=== PATIENT | male | born 1950 | race Caucasian/White ===

== ENCOUNTER → 2018-05-04 | Outpatient (CLI) | payer MEDICARE ==
[2018-05-04 17:06] LABS: HCT 44.6 % (39.0-53.0); HGB 14.9 gm/dL (13.0-17.5); MCH 33.2 pg (25.0-35.0); MCHC 33.4 g/dL (31.0-37.0); MCV 99.3 fL (80.0-100.0); Mean Platelet Volume 7.3; Platelet Count 175 k/uL (150-450); RBC 4.48 m/uL (4.30-5.90); RDW 12.2 % (11.5-15.5); WBC 5.3 k/uL (3.8-10.6)
[2018-05-04 17:31] LABS: Anion Gap 5 mmol/L; Blood Urea Nitrogen 15 mg/dL (9-20); Carbon Dioxide 30 mmol/L (22-30); Chloride 104 mmol/L (98-107); Potassium 4.6 mmol/L (3.5-5.1); Sodium 139 mmol/L (137-145)
== END | disposition home or self-care (01) ==
LOC: LABPAT 15:45
PROVIDERS: ATTEND Internal Medicine Cardiovascular Disease
DX: Z01.812 Encounter for preprocedural laboratory examination (principal); R07.2 Precordial pain
CPT/HCPCS: 36415; 80051; 82565; 84520; 85027

== ENCOUNTER 2018-05-10 05:44 | Day surgery (SDC) | payer MEDICARE ==
[2018-05-05 12:23] VITALS: BMI 24.0
[2018-05-10] MEDS ORDERED: SODIUM CHLORIDE 0.9% 1,000 ML in EMPTY BAG 1 BAG IV ONE (05:57)
[2018-05-10] MEDS ORDERED: NITROGLYCERIN SL TABS 0.4 MG TAB SUBLINGUAL PRN ×2 (05:57→08:51)
[2018-05-10] MEDS ORDERED: ALPRAZolam 0.5 MG TAB PO PRN (05:57)
[2018-05-10] MEDS ORDERED: ATORVASTATIN 80 MG TAB PO STA (05:57)
[2018-05-10] MEDS ORDERED: ASPIRIN 325 MG TAB PO STA (05:57)
[2018-05-10] MEDS ORDERED: ALPRAZolam 0.25 MG TAB PO PRN (05:57)
[2018-05-10] MEDS ORDERED: SODIUM CHLORIDE 0.9% 1,000 ML IV ONE (06:35)
[2018-05-10] MEDS ORDERED: MIDAZOLAM 2 MG/2 ML VIAL IV ONE (07:37)
[2018-05-10] MEDS ORDERED: LIDOCAINE 1% INJ 10MG/ML (20 ML MDV) SQ ONE (07:39)
[2018-05-10] MEDS ORDERED: BIVALIRUDIN BOLUS 250 MG/50 ML IV ONE (08:04)
[2018-05-10] MEDS ORDERED: BIVALIRUDIN 250 MG in SODIUM CHLORIDE 0.9% 50 ML IV ONE (08:05)
[2018-05-10] MEDS ORDERED: PRASUGREL 10 MG TAB PO ONE (08:05)
[2018-05-10] MEDS: NITROGLYCERIN 1000MCG/10ML SYRINGE INTRACORON ONE ×2 (08:12→08:14)
[2018-05-10] MEDS ORDERED: IOPAMIDOL-370 125ML BTL INJ ONE (08:19)
[2018-05-10] MEDS ORDERED: IOPAMIDOL-370 100ML BTL INJ ONE (08:43)
[2018-05-10] MEDS ORDERED: RX INFO: IV CONTRAST WAS GIVEN 1 EACH MISC MISCELLANE PRN (08:51)
[2018-05-10] MEDS ORDERED: ZOLPIDEM 5 MG TAB PO PRN (08:51)
[2018-05-10] MEDS ORDERED: ATROPINE SULFATE 0.1 MG/ML 10ML SYRINGE IV PRN (08:51)
[2018-05-10] MEDS ORDERED: MAG HYDROX/AL HYDROX/SIMETH 30 ML CUP PO PRN (08:51)
[2018-05-10] MEDS ORDERED: SODIUM CHLORIDE 0.9% 1,000 ML IV SCH (09:00)
--- NOTE | 2018-05-10 09:19 | CC ---
CARDIAC CATHETERIZATION REPORT INDICATION: Unstable angina. This is a 67-year-old gentleman who presented to us with exertional chest pain and had an abnormal stress test due to which I advised him to undergo cardiac catheterization. He had been explained of risks, benefits and alternatives, understood and accepted. PROCEDURE NOTE: After obtaining informed consent, left heart catheterization and coronary angiogram were performed via the right femoral artery using standard Gaye catheters. Patient tolerated the procedure well without any obvious immediate complications. Patient received moderate conscious sedation and total sedation time was 14 minutes. FINDINGS: 1. HEMODYNAMICS: Left ventricular end-diastolic pressure is 12 to 14 mm. There is no significant gradient across the aortic valve. 2. LEFT VENTRICULOGRAM: Left ventriculogram is not performed. 3. ANGIOGRAPHIC DATA: Left Main Coronary Artery: Left main coronary artery is a normal-sized vessel and is free of stenosis, which appears calcified, divides into left anterior descending coronary artery and circumflex coronary artery. Circumflex coronary artery and its branches are free of significant stenosis. Left anterior descending coronary artery shows a 95% stenosis in the proximal part and 60% to 70% stenosis just past the diagonal branch. Right coronary artery is a nondominant vessel and is free of significant disease. CONCLUSIONS: A 95% stenosis involving the proximal left anterior descending artery and a 60% to 70% stenosis involving the distal left anterior descending artery. PLAN: Patient will undergo angioplasty with stent placement of proximal LAD and depending upon how the distal vessel looks optimally angioplasty he may or may not undergo stent of the distal vessel. MMODL / IJN: [id number] /
--- NOTE | 2018-05-10 09:19 | LTR ---
May 10, 2018 Re: Marlon Fayetono Dear Dr. Velazquez: I performed cardiac catheterization on Marlon Mullins. A detailed catheterization note is enclosed for your records. In brief, the cardiac catheterization revealed a focal stenosis involving the proximal LAD, which needs to be stented. Thank you for giving me the privilege to participate in the care of this pleasant gentleman. Sincerely, MD JOSIAH Bettencourt / MING: [id number] /
--- NOTE | 2018-05-10 09:44 | AN ---
ANGIOGRAPHY REPORT CORONARY ANGIOPLASTY PROCEDURE NOTE: Mr. Mullins is a 67-year-old male who has been followed by Dr. Elizondo and presented with symptoms of chest discomfort with an abnormal stress test. In view of that, he underwent cardiac catheterization, was found to have critical stenosis involving the proximal LAD and another lesion in mid calcified LAD. In view of that, recommendation was made regarding angioplasty and stenting. The procedures, risks and complications were discussed with the patient who is in full understanding and agreement. PROCEDURE: A 6-Uzbek FR4 guiding catheter introduced in to the system after cannulating the left main, a 0.014 balanced medium weight J-wire was advanced and positioned in the distal LAD. Following that, a 3.0 x 18 mm Xience Karolyn stent was deployed, postdilated at 14 atmospheres. Following that, the balloon was removed and another 0.014 balanced medium weight J-wire was advanced into the diagonal branch and a 2.75 x 12 mm Trek balloon was advanced into the ostium of the diagonal branch and two inflations at 10 atmosphere. Following that, the balloon was removed and the wire of the diagonal branch was removed and a 3.5 x 15 mm Xience Karolyn stent was advanced to the proximal LAD, deployed and post-dilated at 14 atmospheres. After the last inflation, after appropriate wait, the balloon and the guidewire were withdrawn back in the guiding catheter. Images were obtained and repeated. Those images reveal stable successful stenting. At that point, the guiding catheter, the balloon and the guidewire were removed. The sheath was removed. Hemostasis was obtained with deployment of an Angio-Seal. There was no immediate complication. Patient is returned to his room in stable condition. Of note, patient received Angiomax per protocol as well as oral loading dose of Effient. He had chest discomfort and EKG changes with the inflation that resolved at the end of the procedure. RESULTS: 1. Successful stenting of the mid LAD with reduction of stenosis from 75% to 0% with angioplasty of the first diagonal branch ostium. 2. Successful stenting of the proximal LAD with reduction of stenosis from 90% to 0%. RECOMMENDATION: Patient to be continued on aspirin, Effient, beta luis, and statin. The importance of dual antiplatelet treatment were discussed with the patient and his family who are in full understanding and agreement. Duration of procedure is 31 minutes. MMODL / IJN: [id number] /
[2018-05-10] MEDS: METOPROLOL TARTRATE 25 MG TAB PO SCH (20:32)
[2018-05-10] MEDS ORDERED: ATORVASTATIN 80 MG TAB PO SCH (21:00)
[2018-05-11 07:33] LABS: Sodium 139 mmol/L (137-145)
[2018-05-11 07:35] LABS: Anion Gap 3 mmol/L; Blood Urea Nitrogen 10 mg/dL (9-20); Carbon Dioxide 28 mmol/L (22-30); Chloride 108 mmol/L (98-107); Glucose 89 mg/dL (74-99); Potassium 4.7 mmol/L (3.5-5.1)
[2018-05-11] MEDS: METOPROLOL TARTRATE 25 MG TAB PO SCH (08:31)
[2018-05-11] MEDS ORDERED: ASPIRIN 81 MG PO SCH (09:00)
[2018-05-11] MEDS ORDERED: PRASUGREL 10 MG TAB PO SCH (09:00)
--- NOTE | 2018-05-11 09:00 | PN ---
PROGRESS NOTE Mr. Mullins is a 67-year-old male who presented with symptoms of unstable angina underwent cardiac catheterization by Dr. Elizondo and subsequent stenting of the LAD in the proximal and mid segment. He is doing well this morning. He is denying any chest pain. His breathing has been stable. He has been ambulating without difficulty. He continued be on aspirin once a day, Effient 10 mg daily, metoprolol tartrate 25 mg twice a day, and atorvastatin 80 mg daily. PHYSICAL EXAMINATION: Blood pressure 120/70 with the heart in 50s. LUNGS: Clear. HEART: Regular rate and rhythm. S1, S2. No S3. No rub. ABDOMEN: Soft, nontender. RIGHT GROIN: No hematoma. EKG revealed no acute changes. LAB DATA: BUN and creatinine 10 and 0.88. IMPRESSION: 1. Status post stenting of the LAD. 2. Hyperlipidemia. RECOMMENDATION: Patient will be discharged home today and followed as an outpatient with Dr. Elizondo. MMODL / MILEYN: [id number] /
[2018-05-11 09:04] VITALS: BP 122/71; PULSE 63; RESP 20; TEMP 96.9
== END 2018-05-11 10:51 | disposition home or self-care (01) ==
LOC: CATHCVL 05:44 → 3SCARD 08:39 → CATHCVL 05-11 10:51
PROVIDERS: ATTEND Internal Medicine Cardiovascular Disease
DX: I25.110 Atherosclerotic heart disease of native coronary artery with unstable angina pectoris (principal); R94.39 Abnormal result of other cardiovascular function study; E78.5 Hyperlipidemia, unspecified; Z82.49 Family history of ischemic heart disease and other diseases of the circulatory system; Z79.82 Long term (current) use of aspirin; Z79.899 Other long term (current) drug therapy
CPT/HCPCS: 93458; 80048; C9600; C1769 ×3; C1760; C1887; C1725; C1894; C1874; J2250; J2001; J0583; Q9967 ×2

== ENCOUNTER → 2018-12-15 | Outpatient (CLI) | payer MEDICARE ==
[2018-12-15 23:35] LABS: ALT 28 U/L (10-49); AST 31 U/L (14-35); Chol/HDL Ratio 1.76; Cholesterol 104 mg/dL (0-200); Triglycerides <50.0 mg/dL (0.0-149.0)
== END | disposition home or self-care (01) ==
LOC: LABWHC1 08:18
PROVIDERS: ATTEND Internal Medicine Cardiovascular Disease
DX: E78.2 Mixed hyperlipidemia (principal)
CPT/HCPCS: 36415; 80061; 84450; 84460

== ENCOUNTER → 2019-11-23 | Outpatient (CLI) | payer MEDICARE ==
[2019-11-23 15:38] LABS: ALT 20 U/L (10-49); AST 30 U/L (14-35); Chol/HDL Ratio 1.71; Cholesterol 108 mg/dL (0-200); Triglycerides <50.0 mg/dL (0.0-149.0)
== END | disposition home or self-care (01) ==
LOC: LABWHC1 09:32
PROVIDERS: ATTEND Internal Medicine Cardiovascular Disease
DX: E78.2 Mixed hyperlipidemia (principal)
CPT/HCPCS: 36415; 80061; 84450; 84460

== ENCOUNTER 2020-01-12 07:45 | Day surgery (SDC) | payer MEDICARE ==
[2020-01-08 13:42] VITALS: BMI 21.9
[~2020-01-12 07:45] MED LIST: ACETAMINOPHEN TAB 500 MG TAB PO ONE; DEXAMETHASONE SOD PHOSPHATE 10 MG/ML 1 ML VIAL IV ONE; HEPARIN SODIUM,PORCINE 5,000 UNIT/ML 1 ML VIAL SQ ONE; LACTATED RINGERS 1,000 ML IV SCH; LIDOCAINE 1% (10MG/ML) FOR IV START INTRADERMA PRN; MIDAZOLAM 2 MG/2 ML VIAL IV PRN; ONDANSETRON 4 MG/2 ML VIAL IVP ONE
--- NOTE | 2020-01-12 09:27 | P.GSHP ---
History of Present Illness H&P Date: 01/12/20 Chief Complaint: left inguinal hernia 69-year-old male seen in the office in September. Complaining of a hernia on the left-hand side. First noticed earlier this year. Patient wears a truss and this controls his symptoms well. No symptoms on the right. History of previous umbilical hernia repair with mesh. Past Medical History Past Medical History: Atrial Fibrillation, Coronary Artery Disease (CAD), Chest Pain / Angina, Hyperlipidemia, Osteoarthritis (OA) Additional Past Medical History / Comment(s): "minor A-Fib"- no rx History of Any Multi-Drug Resistant Organisms: None Reported Past Surgical History: Heart Catheterization With Stent, Hernia Repair Additional Past Surgical History / Comment(s): umbillical hernia repair Past Anesthesia/Blood Transfusion Reactions: No Reported Reaction Date of Last Stent Placement:: 04/2018 Smoking Status: Never smoker - Past Family History Mother Family Medical History: Cancer, Deep Vein Thrombosis (DVT) Medications and Allergies Home Medications Medication Instructions Recorded Confirmed Type Aspirin 81 mg PO DAILY 11/24/13 01/08/20 History Metoprolol Tartrate [Lopressor] 12.5 mg PO BID 05/05/18 01/12/20 History Atorvastatin [Lipitor] 80 mg PO HS #90 tab 05/11/18 01/12/20 Rx Nitroglycerin Sl Tabs [Nitrostat] 0.4 mg SUBLINGUAL Q5M PRN #25 tab 05/11/18 01/08/20 Rx Allergies Allergy/AdvReac Type Severity Reaction Status Date / Time No Known Allergies Allergy Verified 01/08/20 13:42 Surgical - Exam Vital Signs Temp Pulse Resp BP Pulse Ox 97.0 F L 57 L 16 111/74 99 01/12/20 08:30 01/12/20 08:30 01/12/20 08:30 01/12/20 08:30 01/12/20 08:30 Physical exam: General: Well-developed, well-nourished HEENT: Normocephalic, sclerae nonicteric Abdomen: Nontender, nondistended Extremities: No edema Neuro: Alert and oriented Assessment and Plan (1) Left inguinal hernia Narrative/Plan: Will proceed with laparoscopic da Sandy assisted left inguinal hernia repair with mesh, possible open, possible bilateral at this time. Risks of bleeding, infection, recurrence, bladder and bowel injury, numbness, nerve injury, conversion to an open procedure were discussed with the patient. The patient understands and wishes to proceed. Current Visit: Yes Status: Acute Code(s): K40.90 - UNIL INGUINAL HERNIA, W/O OBST OR GANGR, NOT SPCF RECUR [facility] Code(s): 844760472
[2020-01-12] MEDS ORDERED: NEOSTIGMINE 1 MG/ML 10 ML VIAL ONE (09:48)
[2020-01-12] MEDS ORDERED: MIDAZOLAM 2 MG/2 ML VIAL ONE (09:48)
[2020-01-12] MEDS ORDERED: SUCCINYLCHOLINE CHLORIDE 100 MG/5 ML SYR IV ONE (09:48)
[2020-01-12] MEDS ORDERED: LIDOCAINE 1% INJ 10MG/ML (20 ML MDV) ONE (09:48)
[2020-01-12] MEDS ORDERED: PROPOFOL 10 MG/ML 20 ML VIAL IV ONE (09:48)
[2020-01-12] MEDS ORDERED: GLYCOPYRROLATE 0.2 MG/ML 2 ML VIAL ONE (09:48)
[2020-01-12] MEDS ORDERED: fentaNYL (PF) 50 MCG/ML 2 ML AMP ONE (09:48)
[2020-01-12] MEDS ORDERED: ROCURONIUM 10 MG/ML (10 ML VIAL) IV ONE (09:48)
[2020-01-12] MEDS ORDERED: BUPIVACAINE (PF) 0.5% 30 ML VIAL SQ ONE (10:28)
[2020-01-12] MEDS ORDERED: LACTATED RINGERS 1,000 ML IV ONE (10:39)
--- NOTE | 2020-01-12 11:18 | P.OP ---
Date of Procedure: 01/12/20 Procedure(s) Performed: PREOPERATIVE DIAGNOSIS: Left inguinal hernia POSTOPERATIVE DIAGNOSIS: Same PROCEDURE: Laparoscopic repair left inguinal hernia with the da Sandy robot assistance with mesh SURGEON: Alexandra EBL: Minimal ANESTHESIA: General COMPLICATIONS: None OPERATIVE PROCEDURE: Patient was placed in the operating table in the supine position. The patient was placed under general anesthesia. The abdomen was prepped and draped in usual sterile fashion. A small curvilinear supraumbilical incision was made. The fascia was retracted anteriorly with Boaz forceps. The Veress needle was inserted. The saline drop test was normal. Insufflation took place to 15 mmHg. An 8 mm trocar was placed into the peritoneal cavity. 2 additional 8 mm trochars were placed in the right upper quadrant and left upper quadrant under visualization. The robotic arms were then brought in and docked into place. The fenestrated bipolar was used in the left arm and the laparoscopic nataliya was utilized in the right arm. A 30 8 mm scope was used in the up position. The peritoneal cavity was inspected. The patient had a moderate-sized indirect hernia on the left-hand side. No hernia was seen on the right. The peritoneum was incised in a horizontal fashion cephalad to the internal inguinal ring. Following that careful dissection of the preperitoneal space took place. This took place using both electrocautery, sharp dissection but primarily blunt dissection. Visualization of the pubic tubercle and Shola's ligament took place medially. Full dissection took place laterally as well. The hernia sac was fully dissected. Once we had adequate space the 15 x 10 progrip mesh was advanced into the preperitoneal space and flattened out appropriately to cover all potential hernia sites. No sutures were used. The peritoneal defect was then closed using a locking 2-0 VLok suture. The hernia sac was incorporated into the peritoneal closure to prevent recurrence. The pneumoperitoneum was then evacuated. The skin of all 3 sites was closed using a 4-0 Monocryl stitch. Skin glue was then applied. DISPOSITION: Stable to recovery room
[2020-01-12 11:28] VITALS: TEMP 97.2
[2020-01-12] MEDS: HYDROmorphone 0.5 MG/0.5 ML SYRINGE IVP PRN ×2 (11:51→11:55)
[2020-01-12] MEDS ORDERED: IBUPROFEN 600 MG TAB PO SCH (12:00)
[2020-01-12] MEDS ORDERED: TAMSULOSIN 0.4 MG CAP.ER.24H PO STA (12:29)
[2020-01-12 12:32] VITALS: RESP 16
[2020-01-12 14:37] VITALS: BP 131/78; PULSE 56
[2020-01-12] MEDS ORDERED: ACETAMINOPHEN TAB 325 MG TAB PO SCH (15:00)
== END 2020-01-12 14:45 | disposition home or self-care (01) ==
LOC: OR 07:45
PROVIDERS: ATTEND Surgery
DX: K40.90 Unilateral inguinal hernia, without obstruction or gangrene, not specified as recurrent (principal); I10 Essential (primary) hypertension; I48.91 Unspecified atrial fibrillation; I25.10 Atherosclerotic heart disease of native coronary artery without angina pectoris; E78.5 Hyperlipidemia, unspecified; E78.00 Pure hypercholesterolemia, unspecified; M19.90 Unspecified osteoarthritis, unspecified site; Z79.82 Long term (current) use of aspirin; Z79.899 Other long term (current) drug therapy; Z95.5 Presence of coronary angioplasty implant and graft; Z98.890 Other specified postprocedural states; Z82.49 Family history of ischemic heart disease and other diseases of the circulatory system; Z80.9 Family history of malignant neoplasm, unspecified
CPT/HCPCS: 49650; C1781; J2250; J1100; J2710; J0690; J2405; J2001; J3010; J0330; J2704; J1170

== ENCOUNTER → 2020-04-17 | Outpatient (CLI) | payer MEDICARE ==
--- NOTE | 2020-04-17 13:18 | NM ---
EXAMINATION TYPE: NM bone 3 phase DATE OF EXAM: 04/17/2020 COMPARISON: NONE HISTORY: Osteomyelitis Triple phase bone scintigraphy was performed following the injection of 24.7 mCi Tc 99m MDP. Blood fl ow, blood pool images and 5 hours post injection images acquired. FINDINGS: Blood flow: There is marked increased radiotracer accumulation in the distal left foot compared to th e right on blood flow images. This is slightly greater to the lateral aspect and into the medial dist al aspect. Diffusely the left lower extremity has increased radiotracer compared to the right. Blood pool: There is increased radiotracer accumulation along the distal fifth digit left foot. Some milder uptake is in the region of the second digit mild uptake is within the mid foot. Static images: There is focal radiotracer accumulation in the distal fifth digit. There is some focal radiotracer accumulation in what may be the distal second or possibly distal first left foot dated. Note is also made of increased radiotracer accumulation in the right foot first metatarsal phalangeal joint space more likely related to degenerative changes. Some mild uptake is also within the left an kle. IMPRESSION: 1. Three-phase increased radiotracer accumulation within the distal left foot fifth digit suggestive for osteomyelitis. Consider underlying fracture.
--- NOTE | 2020-04-17 14:06 | XR ---
EXAMINATION TYPE: XR foot complete LT DATE OF EXAM: 04/17/2020 COMPARISON: None HISTORY: Osteomyelitis left foot fifth digit TECHNIQUE: Left foot is examined in 3 views. FINDINGS: Soft tissue swelling is over the distal fourth and fifth digits. No acute fractures or dislocations are evident. The distal interphalangeal joint space of the fifth d igit is poorly visualized. Cortical erosions however are not otherwise evident. Some soft tissue anaya ge may be along the ball of foot. Remaining joint spaces are preserved. IMPRESSION: 1. The distal interphalangeal joint space of the fifth digit is not well visualized. Cortical erosio n however is not identified. 2. Soft tissue swelling fourth and fifth distal digits
== END | disposition home or self-care (01) ==
LOC: RADNMMAIN 07:19
PROVIDERS: ATTEND Podiatrist Foot & Ankle Surgery
DX: M79.89 Other specified soft tissue disorders (principal); R93.7 Abnormal findings on diagnostic imaging of other parts of musculoskeletal system; M86.8X7 Other osteomyelitis, ankle and foot
CPT/HCPCS: 73630; 78315; A9503

== ENCOUNTER → 2020-11-15 | Outpatient (CLI) | payer MEDICARE ==
[2020-11-16 04:30] LABS: LDL Cholesterol,Calculated 52.4 mg/dL (0.0-131.0); VLDL Calculation 10.6 mg/dL (5.00-40.00)
== END | disposition home or self-care (01) ==
LOC: LABWHC1 07:47
PROVIDERS: ATTEND Internal Medicine Cardiovascular Disease
DX: E78.2 Mixed hyperlipidemia (principal)
CPT/HCPCS: 36415; 80061; 84450; 84460

== ENCOUNTER → 2021-12-15 | Outpatient (CLI) | payer MEDICARE ==
[2021-12-15 14:36] LABS: HDL Cholesterol 64.7 mg/dL (40.00-60.00); Triglycerides 49.1 mg/dL (0.00-149.00)
[2021-12-15 15:13] LABS: Chol/HDL Ratio 1.93 Ratio; LDL Cholesterol,Direct Reflex 52.6 mg/dL (0.00-129.00)
== END | disposition home or self-care (01) ==
LOC: LABWHC1 07:23
PROVIDERS: ATTEND Internal Medicine Cardiovascular Disease
DX: E78.2 Mixed hyperlipidemia (principal)
CPT/HCPCS: 36415; 80061; 83721; 84450; 84460

== ENCOUNTER → 2023-01-11 | Outpatient (CLI) | payer MEDICARE ==
[2023-01-11 09:22] LABS: Partial Thromboplastin Time 23.3 sec (22.0-30.0); Prothrombin Time 11.4 sec (10.0-12.5)
[2023-01-11 16:05] LABS: ALT 17 U/L (10-49); AST 21 U/L (14-35); Albumin 4.2 d/dL (3.8-4.9); Albumin/Globulin Ratio 1.56 Ratio (1.60-3.17); Alkaline Phosphatase 96 U/L (41-126); BUN/Creat Ratio 14.11 Ratio (12.00-20.00); Blood Urea Nitrogen 12.7 mg/dL (9.0-27.0); Calcium 9.7 mg/dL (8.7-10.3); Carbon Dioxide 27.6 mmol/L (21.6-31.8); Chloride 104 mmol/L (96-109); Globulin 2.7 d/dL (1.6-3.3); Glucose 87 mg/dL (70-110); Potassium 4.6 mmol/L (3.5-5.5); Sodium 142 mmol/L (135-145); Total Bilirubin 0.7 mg/dL (0.3-1.2); Total Protein 6.9 d/dL (6.2-8.2)
[2023-01-11 16:20] LABS: HCT 46.8 % (39.6-50.0); HGB 15.5 d/dL (13.0-17.0); MCH 32.8 pg (27.0-32.0); MCHC 33.1 d/dL (32.0-37.0); MCV 99.2 FL (80.0-97.0); Mean Platelet Volume 10.1 FL (9.5-12.2); NRBC Per 100 WBC 0 X 10*3/uL (0.00-0.01); Platelet Count 176 X 10*3/uL (140-440); RBC 4.72 X 10*6/uL (4.40-5.60); RDW 12.2 % (11.5-14.5); WBC 4.57 X 10*3/uL (4.50-10.00)
[2023-01-11 16:35] LABS: Appearance,Urine Clear (Clear); Bilirubin,Urine Negative (Negative); Blood,Urine Negative (Negative); Color,Urine Yellow (Yellow); Ketones,Urine Negative (Negative); Nitrite,Urine Negative (Negative); PH, Urine 7.5; Specific Gravity,Urine 1.017 (1.001-1.030); Urobilinogen,Urine 0.2 E.U./DL
== END | disposition home or self-care (01) ==
LOC: LABWHC1 08:23
PROVIDERS: ATTEND Orthopaedic Surgery
DX: Z01.812 Encounter for preprocedural laboratory examination (principal); M16.12 Unilateral primary osteoarthritis, left hip
CPT/HCPCS: 80053; 81003; 85027; 85610; 85730; 86850; 86900; 86901; 87070

== ENCOUNTER 2023-01-20 10:36 | Day surgery (SDC) | payer MEDICARE ==
[2023-01-15 10:40] VITALS: BMI 22.3
[~2023-01-20 10:36] MED LIST changes: -ACETAMINOPHEN TAB 500 MG TAB PO ONE; -DEXAMETHASONE SOD PHOSPHATE 10 MG/ML 1 ML VIAL IV ONE; -HEPARIN SODIUM,PORCINE 5,000 UNIT/ML 1 ML VIAL SQ ONE; +HYDROmorphone 0.5 MG/0.5 ML SYRINGE IVP PRN; -LACTATED RINGERS 1,000 ML IV SCH; -MIDAZOLAM 2 MG/2 ML VIAL IV PRN
[2023-01-20] MEDS ORDERED: TRANEXAMIC 1,000 MG/100ML-NACL 1,000 MG in SALINE 1 100ML.BAG IVPB PRN (11:03)
[2023-01-20] MEDS ORDERED: oxyCODONE ER 10 MG TAB.ER.12H PO STA ×2 (11:34→11:46)
[2023-01-20] MEDS ORDERED: ACETAMINOPHEN TAB 500 MG TAB ONE ×3 (11:38→11:44)
[2023-01-20] MEDS ORDERED: KETOROLAC 15 MG/ML 1 ML VIAL ONE (11:38)
[2023-01-20] MEDS: LACTATED RINGERS 1,000 ML IV SCH (11:52)
[2023-01-20] MEDS ORDERED: ROPIVACAINE/EPI/CLONIDINE/KET 50 ML SYRINGE MISCELLANE PRN (12:10)
[2023-01-20] MEDS ORDERED: DEXAMETHASONE SOD PHOSPHATE 10 MG/ML 1 ML VIAL IVP ONE (12:15)
[2023-01-20] MEDS ORDERED: FAMOTIDINE 20 MG/2 ML VIAL IVP ONE (12:17)
[2023-01-20] MEDS ORDERED: MIDAZOLAM 2 MG/2 ML VIAL IVP ONE (12:22)
[2023-01-20] MEDS ORDERED: SODIUM CHLORIDE 0.9% 50 ML with ceFAZolin 2,000 MG IV ONE ×2 (12:23)
[2023-01-20] MEDS ORDERED: LACTATED RINGERS 1,000 ML IV ONE (13:07)
--- NOTE | 2023-01-20 14:44 | XR ---
Intraoperative/procedural fluoroscopic services were provided for left hip total arthroplasty. Total fluoroscopy time is 46.6 seconds with a total of 7 submitted images to PACS. Total DAP 2.3699 Gycm2. Please see the operative note for further details.
[2023-01-20] MEDS ORDERED: HYDROcodone/APAP 5-325MG 1 EACH TAB PO PRN (14:53)
[2023-01-20] MEDS ORDERED: HYDROmorphone 0.5 MG/0.5 ML SYRINGE IVP PRN (14:53)
[2023-01-20] MEDS ORDERED: NALOXONE 0.4 MG/ML 1 ML VIAL IV PRN (14:53)
[2023-01-20] MEDS ORDERED: HYDROcodone/APAP 10-325MG 1 EACH TAB PO PRN (14:53)
[2023-01-20] MEDS ORDERED: hydrOXYzine pamoate 25 MG CAP PO PRN (14:53)
--- NOTE | 2023-01-20 14:53 | P.OP ---
Date of Procedure: 01/20/23 Preoperative Diagnosis: Severe left hip osteoarthritis Postoperative Diagnosis: Same Procedure(s) Performed: Left direct anterior total hip arthroplasty Implants: 1. [place] Trident II Acetabular Cup, Size #58 2. Will Insignia Size # 8 Femoral Stem, High Offset 3. Biolox delta femoral head, 36 mm, -5 mm neck Anesthesia: BARBARAA, regional Surgeon: Marco Pritchard Estimated Blood Loss (ml): 200 IV fluids (ml): 850 Pathology: none sent Condition: stable Disposition: PACU Indications for Procedure: I had a long discussion with the patient in the office on the potential risks and complications of an elective total hip replacement through a direct anterior approach. Risks discussed include, but are certainly not limited to, risks from anesthesia, superficial infection requiring local wound care or antibiotics, deep quinn-prosthetic joint infection and the treatment required to eradicate infection, intraoperative fracture, postoperative periprosthetic fracture, damage to local blood vessels or nerves particularly the lateral femoral cutaneous nerve, delayed wound healing requiring local wound care or possibly surgical debridement, hip dislocation, leg length discrepancy, soft tissue irritation around the total hip implant such as iliopsoas tendinitis or trochanteric bursitis, wear and osteolysis from the implants, squeaking or audible noises, groin pain, thigh pain, heterotopic ossification, stiffness, aseptic loosening of the implants, dissatisfaction with surgical outcome, need for revision surgery, DVT, PE, swelling of the operative extremity, acute coronary event, stroke, failure to thrive, and possibly loss of life or limb. The patient understands that while these are the most common complications after an elective hip replacement there are certainly other less common complications possible. They were given ample time to ask questions regarding the potential complications of a hip replacement. Following our discussion the patient provided their verbal and written consent to go forward with an elective total hip replacement. Operative Findings: Severe left hip osteoarthritis with large anteroinferior osteophyte around the acetabulum that had to be scored and removed with an osteotome following cup placement Description of Procedure: The patient was identified in the preoperative holding area and the correct hip was marked with my initials. I reviewed the procedure and consent with the patient. All of their questions were answered. The patient was then brought back into the operating room by anesthesia. While on the [facility] anesthesia was administered by the anesthesia team. Preoperative antibiotics and tranexamic acid were also given. After the patient was under anesthesia I examined their ankles to determine their preoperative leg length discrepancy. The skin over the anterior aspect of the hip was shaved to remove hair over the site of planned incision. Both feet and ankles were padded with webril and boots for the [place] were applied. The patient was then carefully transferred onto the [place] table. A perineal post was immediately placed. The arms were placed on arm holders and were well-padded. Both boots were secured to the spars on the [place] table. The patient was positioned so that the pelvis was centered over the post. Nonsterile drapes were applied. A timeout was performed identifying the correct patient, operative extremity, and procedure. At this point fluoroscopy was brought in to take preoperative images of the pelvis and operative hip. Using the standing AP pelvis from the office as a template, a comparable image was obtained with fluoroscopy. A metallic bar was used to create a bi-ischial line for use as a reference to leg length adjustments during the procedure. Global offset was also measured on both the operative and nonoperative leg. Fluoroscopy was then brought out and a pre-scrub using a chlorhexidine scrub brush was performed. The operative limb was then prepped and draped in the standard sterile fashion. An anterior longitudinal incision was made lateral and distal to the ASIS. The skin and subcutaneous tissues were incised sharply. The underlying tensor f ascia was identified and incised in its midportion. The fascia was dissected free from the underlying muscle and the muscle belly was retracted. A blunt tipped cobra retractor was placed over the superior neck under the muscle fibers of the gluteus minimus. The deep enveloping fascia of the tensor was incised. The anterior leash of vessels were then identified and cauterized. The fascia between the rectus and the capsule was then incised and the pre-capsular fat was excised. A second Cobra was placed inferior to the neck. The interval between the rectus and iliocapsularis and the hip capsule was developed and a retractor was placed carefully over the anterior rim of the acetabulum. A T-shaped anterior capsulotomy was performed. The superior capsular leaflet was left in place in the inferior capsular flap was excised. The Cobra retractors were placed intracapsularly. We then made a femoral neck osteotomy according to preoperative and intraoperative templating and confirmed the level of the osteotomy using fluoroscopic imaging. The femoral head was removed, passed off to the back table, and sized. The superior capsular flap was excised. Retractors were placed circumferentially exposing the acetabulum. We then circumferentially debrided the acetabulum free of labrum and osteophytes. The pulvinar was removed to fully visualize the cotyloid fossa. We then sequential ly reamed to achieve peripheral fit and excellent bleeding subchondral bone. The socket was thoroughly irrigated. The acetabular component was impacted into the appropriate position using fluoroscopy to guide version, inclination, and depth of insertion taking care to have a comparable image of the AP pelvis to the standing image taken in the office. An excellent press-fit was achieved and final position was confirmed using fluoroscopy. The press fit was augmented with bony cancellus dome screws. The liner was then impacted into the socket. Attention was then turned to the femur. The remnant dorsal lateral capsule was excised. The short external rotators were visible and protected. A bone hook was used to confirm appropriate translation of the trochanter away from the acetabulum. The leg was then extended and adducted and the bone hook was used to elevate the femur for broaching. A box osteotome and blunt tipped canal sound was then utilized to gain access to the femoral canal. We then sequentially broached the femur in appropriate anteversion until excellent torsional stability was achieved. The neck cut was brought flush to the trial broach with a calcar planar. A trial neck and head were then placed onto the broach and the hip was atraumatically reduced under direct visualization. External rotation to 90 was performed to assess stability. Fluoroscopy was bro ught in. An AP and lateral fluoroscopic image of the proximal femur was obtained to assess position and fill of the trial broach. An AP of the pelvis was then obtained and matched to the preoperative image taken. A bi-ischial bar was then placed and measurements were taken to assess changes in length and offset. The hip was then carefully dislocated, the proximal femur was exposed, and the trial implants were removed. The wound and proximal femur was thoroughly irrigated using sterile saline and pulsatile lavage. The final femoral implant was dispensed and gently tapped into place generating an excellent press-fit. The trunnion was cleansed and the final head was tapped into place to engage the Love taper. The acetabulum was irrigated and visualized to be free of debris. The hip was carefully reduced. Stability was checked clinically with external rotation to 90 and there was no evidence of instability. Final fluoroscopic images were taken. The wound was then thoroughly irrigated and soaked with a dilute Betadine rinse for 3 minutes. 3 L of sterile saline was irrigated through the wound using pulsatile lavage. Local anesthetic cocktail was injected into the soft tissues around the surgical field. A deep drain was placed. The wound was then closed in layers. A sterile dressing was placed over the surgical incision and drain site. The drapes were taken down and the patient was carefully transferred off of the [place] table. Following removal of the boots the leg lengths felt acceptable. The patient was then taken to recovery room having tolerated the procedure well. . PLAN: The patient can weight-bear as tolerated on the operative extremity. 2 doses of postoperative antibiotics. DVT prophylaxis with aspirin 81 mg twice a day based on preoperative risk stratification. Physical therapy for gait training. Discontinue drain postoperative day #1 if output is less than 100 mL per shift.
[2023-01-20] MEDS: SODIUM CHLORIDE 0.9% 1,000 ML IV SCH (18:40)
[2023-01-20] MEDS: ASPIRIN 81 MG PO SCH (20:53)
[2023-01-20] MEDS: METOPROLOL TARTRATE 12.5 MG TAB PO SCH (20:53)
[2023-01-20] MEDS ORDERED: SENNOSIDES-DOCUSATE SODIUM 1 EACH TAB PO SCH (21:00)
[2023-01-20] MEDS ORDERED: PRAVASTATIN SODIUM 20 MG TAB PO SCH (21:00)
[2023-01-21] MEDS: SODIUM CHLORIDE 0.9% 1,000 ML IV SCH (00:28)
[2023-01-21] MEDS: LACTATED RINGERS 1,000 ML IV SCH (06:16)
--- NOTE | 2023-01-21 08:04 | P.DS ---
Providers Date of admission: 01/20/2023 Attending physician: Marco Pritchard Consults: 01/20/23 14:53 Consult Physician Routine Consulting Provider: Naresh Velazquez Consult Reason/Comments: post op medical management Do you want consulting provider notified?: Yes Primary care physician: Naresh Velazquez [place] [facility] Course: The patient is a very pleasant 72-year-old male who was admitted yesterday for an elective hip replacement. shiraz Rojas surgery he was transferred to the orthopedic floor. He did well postoperatively. He was transitioned from IV to oral pain medications. He received 2 doses of postoperative antibiotics. He worked with physical therapy. He was seen by internal medicine for perioperative medical management. His drain was pulled on postoperative day #1. He ultimately did well and was cleared for discharge home. Plan - Discharge Summary Discharge Rx Participant: Yes New Discharge Prescriptions: New Diclofenac Sodium [Voltaren] 75 mg PO BID #60 tab Aspirin 81 mg PO BID #60 tab Docusate [Colace] 100 mg PO DAILY #60 capsule Omeprazole 40 mg PO DAILY #30 cap HYDROcodone/APAP 5-325MG [Farwell 5-325] 1 - 2 tab PO Q6HR PRN #32 tab PRN Reason: Pain No Action Aspirin 81 mg PO DAILY Metoprolol Tartrate [Lopressor] 12.5 mg PO BID Cholecalciferol [Vitamin D3 (25 Mcg = 1000 Iu)] 25 mcg PO DAILY Pravastatin Sodium [Pravachol] 20 mg PO HS Discharge Medication List Aspirin 81 mg PO DAILY 11/24/13 [History] Metoprolol Tartrate [Lopressor] 12.5 mg PO BID 05/05/18 [History] Cholecalciferol [Vitamin D3 (25 Mcg = 1000 Iu)] 25 mcg PO DAILY 04/27/20 [History] Pravastatin Sodium [Pravachol] 20 mg PO HS 01/15/23 [History] Aspirin 81 mg PO BID #60 tab 01/21/23 [Rx] Diclofenac Sodium [Voltaren] 75 mg PO BID #60 tab 01/21/23 [Rx] Docusate [Colace] 100 mg PO DAILY #60 capsule 01/21/23 [Rx] HYDROcodone/APAP 5-325MG [Farwell 5-325] 1 - 2 tab PO Q6HR PRN #32 tab 01/21/23 [Rx] Omeprazole 40 mg PO DAILY #30 cap 01/21/23 [Rx] Follow up Appointment(s)/Referral(s): Marco Pritchard MD [Medical Doctor] - 2 Weeks Activity/Diet/Wound Care/Special Instructions: 1. Weight-bear as tolerated on your operative extremity unless instructed otherwise. Use a walker or other assistive device to ambulate. 2. Leave surgical dressing in place. If your dressing becomes saturated with blood, there is drainage, or the dressing becomes loose please contact the offi ce. 3. It is okay to shower with your surgical dressing, but do not submerge in water (no hot tubs, bath's, swimming etc.) 4. Make sure to take her blood clot prevention medication as prescribed (a spirin, Eliquis, Xarelto, and Plavix are commonly prescribed medications for blood clot prevention) 5. While taking Farwell or Percocet for pain make sure you're taking a stool softener (Colace) and drink lots of water. 6. Keep all follow-up appointments as scheduled. You will usually be seen in 1-2 weeks following surgery. 7. Please contact the office with any questions or concerns [phone] Discharge Disposition: HOME SELF-CARE
[2023-01-21] MEDS: METOPROLOL TARTRATE 12.5 MG TAB PO SCH (08:25)
[2023-01-21] MEDS: ASPIRIN 81 MG PO SCH (08:25)
[2023-01-21] MEDS ORDERED: FAMOTIDINE 20 MG TAB PO SCH (09:00)
[2023-01-21] MEDS ORDERED: ASPIRIN 81 MG PO SCH (09:00)
[2023-01-21 09:21] VITALS: BP 108/59; PULSE 71; RESP 20; TEMP 97.6
[2023-01-21 11:49] LABS: HCT 42.4 % (39.6-50.0); HGB 13.9 g/dL (13.0-17.0); MCH 32.6 pg (27.0-32.0); MCHC 32.8 g/dL (32.0-37.0); MCV 99.3 FL (80.0-97.0); Mean Platelet Volume 10.8 FL (9.5-12.2); NRBC Per 100 WBC 0 X 10*3/uL (0.00-0.01); Platelet Count 181 X 10*3/uL (140-440); RBC 4.27 X 10*6/uL (4.40-5.60); RDW 11.9 % (11.5-14.5); WBC 16.78 X 10*3/uL (4.50-10.00)
[2023-01-21 12:25] LABS: Basophils # (A) 0.04 X 10*3/uL (0.00-0.10); Basophils % (A) 0.2 %; Eosinophils # (A) 0 X 10*3/uL (0.04-0.35); Eosinophils % (A) 0 %; Lymphocytes # (A) 0.87 X 10*3/uL (0.90-5.00); Lymphocytes % (A) 5.2 %; Monocytes # (A) 1.73 X 10*3/uL (0.20-1.00); Monocytes % (A) 10.3 %; Neutrophils # (A) 14.01 X 10*3/uL (1.80-7.70); Neutrophils % (A) 83.5 %; RBC Morphology Normal (Normal)
--- NOTE | 2023-01-22 00:09 | HP ---
HISTORY AND PHYSICAL CHIEF COMPLAINT: Osteoarthritis of the left hip. HISTORY OF PRESENT ILLNESS: This is another admission for this fairly healthy 72-year-old. He is coming in for left KOBI. He has been in good health except he has had myocardial infarction many years ago. REVIEW OF SYSTEMS: He denies any headaches; chest pain; shortness of breath; abdominal pain; nausea; vomiting; GI symptoms; frequency, urgency, dysuria; fever; chills, etc. Past medical history, family history, and personal and social histories are otherwise unremarkable and noncontributory. PHYSICAL EXAMINATION: VITAL SIGNS: Normal. HEAD, EARS, EYES, NOSE, MOUTH, AND THROAT: Normal. NECK: Supple. Neck veins not distended. CHEST: Clear. CARDIAC: Normal. ABDOMEN: Soft, nontender. EXTREMITIES: Normal. NEUROLOGICAL: Intact. IMPRESSION: He is admitted to the hospital with diagnoses of: 1. Osteoarthritis of the left hip. 2. History of coronary artery disease and myocardial infarction. RECOMMENDATIONS: None. He is cleared for surgery from my perspective. MMODL / IJN: [id number] /
--- NOTE | 2023-01-22 02:12 | PN ---
PROGRESS NOTE DATE OF SERVICE: 01/21/2023 CHIEF COMPLAINT: Status post left hip replacement. HISTORY OF PRESENT ILLNESS: This gentleman is doing well. He has had no shortness of breath, no fever, no chills, chest pain, abdominal pain, etc. He had a little bit of difficulty voiding, but he is fine now. PHYSICAL EXAMINATION: CHEST: Clear. CARDIAC: Normal. ABDOMEN: Soft, nontender. IMPRESSION: Status post left hip replacement. PLAN: Probably home today. MMODL / IJN: [id number] /
--- NOTE | 2023-01-22 11:52 | P.ANPRN ---
Procedure Note - Anesthesia - Nerve Block Performed Left Rambo Single Time Out Performed: Yes Date of Procedure: 01/20/23 Procedure Start Time: 11:52 Procedure Stop Time: 11:57 Location of Patient: PreOp Indication: Acute Post-Operative Pain, Requested by Surgeon Sedation Type: Sedate with meaningful contact maintained Preparation: Sterile Prep Position: Supine Needle Types: Pajunk Needle Gauge: 21 Ultrasound used to visualize needle placement: Yes Ultrasound used to observe medication spread: Yes Blood Aspirated: No Pain Paresthesia on Injection Noted: No Resistance on Injection: Normal Image Stored and Saved: Yes Events: Uneventful and Well Tolerated (Ropivacaine 0.5% 26 5 mL plus dexamethasone 4 mg)
== END 2023-01-21 10:37 | disposition home or self-care (01) ==
LOC: OR 10:36 → 4SSUR 14:44 → OR 01-21 10:37
PROVIDERS: ATTEND Orthopaedic Surgery
DX: M16.12 Unilateral primary osteoarthritis, left hip (principal); N40.0 Benign prostatic hyperplasia without lower urinary tract symptoms; F10.90 Alcohol use, unspecified, uncomplicated; Z98.890 Other specified postprocedural states; Z79.899 Other long term (current) drug therapy
CPT/HCPCS: 27130; 97161; 97166; 64447; 85025; 73501; C1776; J2250; J1100; J0690 ×3; J2405; J3490; J1885

== ENCOUNTER 2023-03-12 05:35 | Day surgery (SDC) | payer MEDICARE ==
[2023-03-12] MEDS ORDERED: LACTATED RINGERS 1,000 ML IV SCH (05:45)
[2023-03-12] MEDS ORDERED: ONDANSETRON 4 MG/2 ML VIAL IVP ONE (05:45)
[2023-03-12] MEDS ORDERED: DEXAMETHASONE SOD PHOSPHATE 4 MG/ML 1 ML VIAL IV ONE (05:45)
[2023-03-12] MEDS ORDERED: SUCCINYLCHOLINE CHLORIDE 200 MG/10 ML VIAL IV ONE (06:55)
[2023-03-12] MEDS ORDERED: LIDOCAINE 1% INJ 10MG/ML (20 ML MDV) ONE (06:55)
[2023-03-12] MEDS ORDERED: MIDAZOLAM 2 MG/2 ML VIAL ONE (06:55)
[2023-03-12] MEDS ORDERED: ePHEDrine 50 MG/ML 1 ML VIAL ONE (06:55)
[2023-03-12] MEDS ORDERED: fentaNYL (PF) 50 MCG/ML 2 ML AMP ONE (06:55)
[2023-03-12] MEDS ORDERED: PROPOFOL 10 MG/ML 20 ML VIAL IV ONE (06:55)
[2023-03-12] MEDS ORDERED: MIDAZOLAM 2 MG/2 ML VIAL IV PRN (07:00)
[2023-03-12] MEDS ORDERED: HYDROmorphone 0.5 MG/0.5 ML SYRINGE IVP PRN (07:00)
[2023-03-12 08:15] VITALS: TEMP 97.3
[2023-03-12] MEDS ORDERED: HYDROcodone/APAP 5-325MG 1 EACH TAB PO PRN (08:17)
--- NOTE | 2023-03-12 08:17 | P.OP ---
Date of Procedure: 03/12/23 Preoperative Diagnosis: 1. Superficial wound dehiscence and delayed wound healing, left hip 2. Left total hip replacement 7 weeks ago Postoperative Diagnosis: Same Procedure(s) Performed: 1. Superficial irrigation and debridement and revision wound closure, left hip (an excisional debridement using a scalpel of nonviable skin and subcutaneous tissue down to the level of the fascia) 2. Application of negative pressure incisional wound VAC, left hip, < 50 sq cm (incision 9-cm) Anesthesia: ZI Surgeon: Marco Pritchard Estimated Blood Loss (ml): 10 Pathology: none sent Condition: stable Disposition: PACU Indications for Procedure: The patient is very pleasant relatively healthy 72-year-old male who underwent an uncomplicated left total hip replacement 7 weeks ago. He did very well initially with minimal to no pain. Several weeks ago he developed an eschar over the most distal aspect of his incision which eventually sloughed off with a small area of superficial wound opening. He was initially managed with local wound care and oral antibiotics. After 1 week of local wound care there was still a small open wound. I discussed with the patient and his continued local wound care versus formal irrigation and debridement and revision wound closure in the operating room. We ultimately decided on the latter. We briefly discussed the possibility that the wound is a draining sinus communicating with the joint although I had a very low suspicion for this. They understand the potential risks and complications of both the previously mentioned procedures. He provided their consent to go forward with surgery. Operative Findings: There is a small 2 cm open wound over the most distal aspect of the incision. The wound was superficial and tract only to the subcutaneous tissue. The fascia was found to be completely intact with no sinus or sign of deep infection. Description of Procedure: The patient is notified in preoperative holding and the correct left leg was marked with my initials. I reviewed the consent form with the patient and his . All of their questions were answered. The patient was then brought back to the operating room. While still on his gurney a general anesthetic and preoperative antibiotics were given. Once the patient was under anesthesia both feet were padded and boots were placed. The patient was then carefully transferred over to the [place] table and both boots were attached to the spars. A perineal post was placed. Both arms were carefully padded and placed on arm holders. A nonsterile drape was applied and a presurgical scrub was performed using a chlorhexidine scrub brush. The left leg was then prepped and draped in the standard sterile fashion. A timeout was performed identifying the correct patient, operative extremity, and procedure. I began by marking out the open wound over the distal aspect of the incision which measured just over 2 cm. An ellipse was drawn out over the pencil eraser- sized opening. The incision was then made with a scalpel and extended proximally and distally. A scalpel was used to carefully ellipsed out and debrided the skin margins around the open wound. Nonviable subcutaneous tissue was also carefully debrided with a scalpel. The fascia underneath the open wound was found to be completely intact with no evidence of opening or sinus tract. The wound was then thoroughly irrigated both with sterile saline and Irrisept. The wound was then closed in layers using monofilament barbed sutures for the deep to subcutaneous tissue and superficial subcutaneous tissue. The skin was reinforced with 3-0 nylon sutures. The final skin incision measured 9 cm. An incisional wound VAC was placed over the closed incision, hooked up to suction, and found to have excellent seal. The drapes were taken down and the patient was then transferred to a [facility]. He was brought to recovery having tolerated the procedure well. Plan: The patient is going to discharge home as an outpatient. He will be given a prescription for doxycycline. He will need follow-up in the office in 1 week for a wound check. He does not need x-rays at that time.
[2023-03-12 09:30] VITALS: BP 129/75
[2023-03-12 09:55] VITALS: PULSE 59; RESP 20
== END 2023-03-12 10:17 | disposition home or self-care (01) ==
LOC: OR 05:35
PROVIDERS: ATTEND Orthopaedic Surgery
DX: T81.30XA Disruption of wound, unspecified, initial encounter (principal); Z96.642 Presence of left artificial hip joint; Y83.8 Other surgical procedures as the cause of abnormal reaction of the patient, or of later complication, without mention of misadventure at the time of the procedure
CPT/HCPCS: 11043; J2250; J0330; J1100; J0690; J2405; J2001; J3010; J2704

== ENCOUNTER → 2023-12-21 | Outpatient (CLI) | payer MEDICARE ==
[2023-12-21 15:31] LABS: ALT 15 U/L (10-49); AST 22 U/L (14-35); Chol/HDL Ratio 1.98 Ratio; LDL Cholesterol,Calculated 50.8 mg/dL (0.0-131.0); VLDL Calculation 14.16 mg/dL (5.00-40.00)
== END | disposition home or self-care (01) ==
LOC: LABWHC1 08:48
PROVIDERS: ATTEND Family Medicine
DX: E78.2 Mixed hyperlipidemia (principal)
CPT/HCPCS: 36415; 80061; 84450; 84460